=== PATIENT | female | born 1965 | race Caucasian/White ===

== ENCOUNTER → 2017-01-22 | Outpatient (CLI) | payer BC | LOC: RAD 17:00 | PROVIDERS: ATTEND Registered Nurse | DX: E04.1 Nontoxic single thyroid nodule (principal) | CPT/HCPCS: 76536 ==

== ENCOUNTER → 2018-01-28 | Outpatient (CLI) | payer BC ==
[2018-01-28 08:37] LABS: ALANINE AMINOTRANSFERASE 29 U/L (9-52); ALBUMIN 3.8 g/dL (3.5-5.0); ALKALINE PHOSPHATASE 102 U/L (38-126); ANION GAP 13 (5-19); ASPARTATE AMINO TRANSFERASE 16 U/L (14-36); BILIRUBIN,DIRECT 0.2 mg/dL (0.0-0.4); BILIRUBIN,TOTAL 0.4 mg/dL (0.2-1.3); BLOOD UREA NITROGEN 11 mg/dL (7-20); CALCIUM 9.3 mg/dL (8.4-10.2); CARBON DIOXIDE 24 mmol/L (22-30); CHLORIDE 109 mmol/L (98-107); CHOLESTEROL 202.01 mg/dL (0-200); GLUCOSE 123 mg/dL (75-110); POTASSIUM 4.4 mmol/L (3.6-5.0); SODIUM 145.6 mmol/L (137-145); TOTAL PROTEIN 6.4 g/dL (6.3-8.2); TRIGLYCERIDES 227 mg/dL (<150)
[2018-01-28 08:48] LABS: DIRECT LDL 117 mg/dL (<100)
[2018-01-28 08:49] LABS: VLDL CHOLESTEROL 45.4 mg/dL (10-31)
== END ==
LOC: LAB 07:51
PROVIDERS: ATTEND Specialist
DX: E66.09 Other obesity due to excess calories (principal)
CPT/HCPCS: 36415; 80053; 80061; 84443

== ENCOUNTER → 2018-04-26 | Outpatient (CLI) | payer BC | LOC: LAB 17:56 | PROVIDERS: ATTEND Nurse Practitioner Family | DX: N39.0 Urinary tract infection, site not specified (principal) | CPT/HCPCS: 87086; 87088; 87186 ==

== ENCOUNTER → 2018-06-10 | Outpatient (CLI) | payer BC ==
[2018-06-11 11:07] LABS: COMPLEMENT C4 11 mg/dL (14-44)
[2018-06-13 06:54] LABS: C1 ESTERASE INHIBITOR 8 mg/dL (21-39)
== END ==
LOC: LAB 10:39
PROVIDERS: ATTEND Allergy & Immunology
DX: D84.1 Defects in the complement system (principal)
CPT/HCPCS: 36415; 86160

== ENCOUNTER → 2019-03-14 | Outpatient (CLI) | payer BC ==
[2019-03-14 09:04] LABS: ABSOLUTE EOSINOPHILS # (AUTO) 0.1 10^3/uL (0.0-0.6); ABSOLUTE LYMPHOCYTES (AUTO) 1.7 10^3/uL (0.5-4.7); ABSOLUTE MONOCYTES (AUTO) 0.5 10^3/uL (0.1-1.4); ABSOLUTE NEUT (AUTO) 2.8 10^3/uL (1.7-8.2); BASOPHILS % (AUTO) 0.8 % (0-2); EOSINOPHILS % (AUTO) 2.5 % (0-6); HEMATOCRIT 40.7 % (36.0-47.0); HEMOGLOBIN 13.5 g/dL (12.0-15.5); LYMPHOCYTES % (AUTO) 33.8 % (13-45); MEAN CORPUSCULAR HGB CONC 33.1 g/dL (32.0-36.0); MEAN CORPUSCULAR VOLUME 82 fl (80-97); MONOCYTES % (AUTO) 8.9 % (3-13); PLATELET COUNT 186 10^3/uL (150-450); RED BLOOD COUNT 4.99 10^6/uL (3.72-5.28); RED CELL DISTRIBUTION WIDTH 14.9 % (11.5-14.0); TOTAL CELLS COUNTED % (AUTO) 100 %; WHITE BLOOD COUNT 5.1 10^3/uL (4.0-10.5)
[2019-03-14 09:39] LABS: ALANINE AMINOTRANSFERASE 28 U/L (9-52); ALBUMIN 4.1 g/dL (3.5-5.0); ALKALINE PHOSPHATASE 107 U/L (38-126); ANION GAP 8 (5-19); ASPARTATE AMINO TRANSFERASE 21 U/L (14-36); BILIRUBIN,DIRECT 0.3 mg/dL (0.0-0.4); BILIRUBIN,TOTAL 0.6 mg/dL (0.2-1.3); BLOOD UREA NITROGEN 14 mg/dL (7-20); CALCIUM 9.3 mg/dL (8.4-10.2); CARBON DIOXIDE 24 mmol/L (22-30); CHLORIDE 108 mmol/L (98-107); CHOLESTEROL 180.25 mg/dL (0-200); GLUCOSE 129 mg/dL (75-110); POTASSIUM 4.4 mmol/L (3.6-5.0); SODIUM 139.8 mmol/L (137-145); TOTAL PROTEIN 6.8 g/dL (6.3-8.2); TRIGLYCERIDES 253 mg/dL (<150)
[2019-03-14 09:50] LABS: DIRECT LDL 95 mg/dL (<100)
[2019-03-14 09:53] LABS: VLDL CHOLESTEROL 50.6 mg/dL (10-31)
== END ==
LOC: EDBD 08:26 → LAB 08:26
PROVIDERS: ATTEND Registered Nurse
DX: I10 Essential (primary) hypertension (principal); E78.5 Hyperlipidemia, unspecified; E55.9 Vitamin D deficiency, unspecified
CPT/HCPCS: 36415; 80053; 80061; 82306; 84443; 85025

== ENCOUNTER 2019-07-29 07:06 | Day surgery (SDC) | payer BC ==
[~2019-07-29 07:06] MED LIST: ACETAMINOPHEN 325 MG TABLET PO PRN; CEFAZOLIN SODIUM 2 GM in DEXTROSE 5%-WATER 100 ML IV PRN; IBUPROFEN 800 MG in NORMAL SALINE 250 ML IV PRN
[2019-07-29] MEDS ORDERED: ACETAMINOPHEN 325 MG TABLET ONE (08:08)
[2019-07-29 08:23] LABS: HEMATOCRIT 39.2 % (36.0-47.0); HEMOGLOBIN 13.2 g/dL (12.0-15.5); MEAN CORPUSCULAR HEMOGLOBIN 27.5 pg (27.0-33.4); MEAN CORPUSCULAR HGB CONC 33.7 g/dL (32.0-36.0); MEAN CORPUSCULAR VOLUME 82 fl (80-97); PLATELET COUNT 240 10^3/uL (150-450); RED BLOOD COUNT 4.79 10^6/uL (3.72-5.28); RED CELL DISTRIBUTION WIDTH 14.5 % (11.5-14.0); WHITE BLOOD COUNT 6.4 10^3/uL (4.0-10.5)
--- NOTE | 2019-07-29 08:32 | RADIOLOGY REPORT (SQ) ---
EXAM DESCRIPTION: CHEST SINGLE VIEW COMPLETED DATE/TIME: 07/29/2019 7:40 am REASON FOR STUDY: PREOP COMPARISON: AP view of the chest from 12/24/2012 EXAM PARAMETERS: NUMBER OF VIEWS: One view. TECHNIQUE: Single frontal radiographic view of the chest acquired. RADIATION DOSE: NA LIMITATIONS: None. FINDINGS: LUNGS AND PLEURA: No consolidation, pleural effusion or pneumothorax. MEDIASTINUM AND HILAR STRUCTURES: No mediastinal or hilar contour abnormality. HEART AND VASCULAR STRUCTURES: The cardiac silhouette and pulmonary vasculature are within normal ruby its. BONES: No acute findings. HARDWARE: The tip of the right subclavian vein approach single-lumen port projects within the SVC. OTHER: No other finding. IMPRESSION: No acute cardiopulmonary process. TECHNICAL DOCUMENTATION: JOB ID: [id number] [employer]- All Rights Reserved Reading location - IP/workstation name: [email or web address]
[2019-07-29] MEDS ORDERED: PROPOFOL INJ 200 MG/20 ML VIAL IV ONE (08:51)
[2019-07-29] MEDS ORDERED: FENTANYL CITRATE INJ/PF 100 MCG/2 ML AMPUL ONE (08:51)
[2019-07-29] MEDS ORDERED: MIDAZOLAM 2 MG/2 ML INJ ONE (08:51)
[2019-07-29] MEDS ORDERED: BUPIVACAINE HCL 0.25 % INJ/PF (2.5 MG/1 ML) 30 ML VIAL ONE (08:59)
[2019-07-29] MEDS ORDERED: LIDOCAINE 1% INJ-PF (10 MG/ML) 30 ML SDV ONE (09:16)
[2019-07-29 09:27] LABS: ANION GAP 9 (5-19); BLOOD UREA NITROGEN 10 mg/dL (7-20); CALCIUM 9.4 mg/dL (8.4-10.2); CARBON DIOXIDE 23 mmol/L (22-30); CHLORIDE 108 mmol/L (98-107); GLUCOSE 112 mg/dL (75-110); POTASSIUM 4.4 mmol/L (3.6-5.0)
[2019-07-29] MEDS ORDERED: FENTANYL CITRATE INJ/PF 100 MCG/2 ML AMPUL IV PRN ×3 (09:35)
[2019-07-29] MEDS ORDERED: DIPHENHYDRAMINE HCL 50 MG/ML VIAL IV PRN (09:35)
[2019-07-29] MEDS ORDERED: MEPERIDINE HCL/PF INJ 25 MG/1 ML DISP.SYRIN IV PRN (09:35)
[2019-07-29] MEDS ORDERED: LIDOCAINE 1% INJ (10 MG/ML) 10 ML MDV INJ ONE (09:42)
[2019-07-29] MEDS ORDERED: BUPIVACAINE HCL 0.25 % INJ/PF (2.5 MG/1 ML) 30 ML VIAL INJ ONE (09:43)
--- NOTE | 2019-07-29 10:10 | Discharge Summary ---
Discharge Summary (SDC) - Discharge Final Diagnosis: Dysfunctional Mediport Date of Surgery: 07/29/19 Discharge Date: 07/29/19 Condition: Stable Treatment or Instructions: Discharge home. Diet as tolerated. Activity: Nonstrenuous. Follow-up with me in 7 to 10 days. Jefferson 5/325 mg p.o. every 6 hours as needed for pain. Okay to shower in 48 hours. No tub baths or swimming pools x2 weeks. Referrals: NELY LOPEZ BILINGUAL OFFICE ASSISTANT [Primary Care Provider] - Discharge Diet: As Tolerated Respiratory Treatments at Home: Deep Breathing/Coughing, Incentive Spirometer Discharge Activity: Balance Activity w/Rest Home Care Assistance: None Needed Report the Following to Your Physician Immediately: Shortness of Breath, Nausea, Vomiting, Increase in Pain, Fever over 101 Degrees, Unusual Bleeding
--- NOTE | 2019-07-29 10:16 | Operative Report ---
Nonrecallable Operative Report DATE OF SURGERY: 07/29/19 PREOPERATIVE DIAGNOSIS: Dysfunctional Mediport POSTOPERATIVE DIAGNOSIS: Same as above OPERATION: Excision of right chest wall Mediport SURGEON: CATALINO ADAME 1ST SLAB INSTALLER: TAMARA CRYSTAL ANESTHESIA: LMAC TISSUE REMOVED OR ALTERED: Right chest wall Mediport COMPLICATIONS: None apparent ESTIMATED BLOOD LOSS: Minimal PROCEDURE: Drains/implants: None. Procedure in detail: After informed consent was obtained, she was brought into the operating room and laid in the supine position. The area of the right chest was prepped and draped in a normal sterile fashion. Lidocaine mixed with bupivacaine was infiltrated into the skin of the right chest. An incision was created within the bounds of a previous scar. Using sharp and blunt dissection, the Mediport hub was freed from the capsule. The catheter was then removed from the vein. Pressure was held and hemostasis was achieved. The Mediport hub was then removed from the subcutaneous tissue. The capsule was excised. The subcutaneous tissues were closed using 3-0 Vicryl suture. The skin was closed using 4-0 Vicryl Rapide suture in subcuticular fashion. A dressing was placed, and the procedure was concluded. All sponge, instrument, needle counts were correct x2. Condition: Stable. Tamara Crystal PA-C was scrubbed and present the entirety the procedure. She assisted with all portions of procedure including opening of the skin, dissection of the Mediport, removal of the Mediport, closure and subcutaneous tissue, and closure of the skin.
[2019-07-29 11:58] VITALS: BP 113/74
--- NOTE | 2019-07-29 15:06 | EKG REPORT ---
SEVERITY:- OTHERWISE NORMAL ECG - SINUS RHYTHM VENTRICULAR PREMATURE COMPLEX : Confirmed by: Davy Watson MD 29-Jul-2019 15:05:17
== END 2019-07-29 11:15 | disposition home or self-care (01) ==
LOC: OROUT 07:06
PROVIDERS: ATTEND Surgery
DX: Z45.2 Encounter for adjustment and management of vascular access device (principal); E11.9 Type 2 diabetes mellitus without complications; I10 Essential (primary) hypertension; D84.1 Defects in the complement system; E78.00 Pure hypercholesterolemia, unspecified; Z79.84 Long term (current) use of oral hypoglycemic drugs; Z79.899 Other long term (current) drug therapy
CPT/HCPCS: 36415; 82962; 85027; 80048; 71045; 93005; 93010; 00532; 36590; J2250; J0690; J3010; J3490; J7060; J7050; J2704; J1741; 532

== ENCOUNTER → 2020-07-20 | Outpatient (CLI) | payer BC | LOC: OD 13:25 | PROVIDERS: ATTEND Allergy & Immunology | DX: D84.1 Defects in the complement system (principal) | CPT/HCPCS: 36415; 86160 ==

== ENCOUNTER → 2020-09-13 | Outpatient (CLI) | payer BC ==
[~2020-09-13] MED LIST changes: -ACETAMINOPHEN 325 MG TABLET PO PRN; -CEFAZOLIN SODIUM 2 GM in DEXTROSE 5%-WATER 100 ML IV PRN; +COVID-19 VACCINE (PFIZER)/PF 30 MCG/0.3 ML VIAL IM ONE; +EPINEPHRINE INJ/PF 1 MG/1 ML AMPULE IM PRN; -IBUPROFEN 800 MG in NORMAL SALINE 250 ML IV PRN
== END ==
LOC: EMPHEALTH 11:21
PROVIDERS: ATTEND Internal Medicine
DX: Z23 Encounter for immunization (principal)
CPT/HCPCS: 91300

== ENCOUNTER → 2020-10-04 | Outpatient (CLI) | payer BC | LOC: EMPHEALTH 14:11 | PROVIDERS: ATTEND Internal Medicine | DX: Z23 Encounter for immunization (principal) | CPT/HCPCS: 91300 ==